=== PATIENT | female | born 1950 | race Caucasian/White ===

== ENCOUNTER → 2022-04-11 09:46 | Outpatient (CLI) | payer MEDICARE, SELFPAY ==
--- NOTE | 2022-04-11 09:49 | DI.RAD.S_ITS ---
PROCEDURE: XR FOOT LT MIN 3V INDICATIONS: left foot pain TECHNIQUE: 3 views of the foot were acquired. COMPARISON: None. FINDINGS: Bones: Comminuted base an shaft of distal phalanx of great toe fracture involving the articular surface. No other fractures or dislocations are noted. No suspicious bony lesions. Soft tissues: No tibiotalar joint effusion. Achilles tendon appears normal. IMPRESSION: Comminuted distal phalanx fracture of great toe involving the articular surface. Dictated by: Joni Rubio M.D. on 04/11/2022 at 10:12 Approved by: Joni Rubio M.D. on 04/11/2022 at 10:12
== END ==
PROVIDERS: Referring Provider Nurse Practitioner Family; Visit Provider Nurse Practitioner Family
DX: S92.422A Displaced fracture of distal phalanx of left great toe, initial encounter for closed fracture (principal); M79.672 Pain in left foot
CPT/HCPCS: 73630

== ENCOUNTER → 2024-06-24 07:31 | Outpatient (CLI) | payer MEDICARE, SELFPAY | PROVIDERS: Visit Provider Student in an Organized Health Care Education/Training Program | DX: R30.0 Dysuria (principal) | CPT/HCPCS: 87086 ==

== ENCOUNTER → 2025-03-29 08:52 | Outpatient (CLI) | payer MEDICARE, SELFPAY | PROVIDERS: Visit Provider Nurse Practitioner Family | DX: N39.0 Urinary tract infection, site not specified (principal) | CPT/HCPCS: 87086 ==